=== PATIENT | male | born 1990 | race Caucasian/White ===

== ENCOUNTER 2017-11-26 10:45 | Emergency (ER) | payer BC, OTHER | END 2017-11-26 11:30 | disposition home or self-care (01) | LOC: E/R 10:45 | DX: R55 Syncope and collapse (principal); F12.90 Cannabis use, unspecified, uncomplicated; T73.0XXA Starvation, initial encounter; I51.7 Cardiomegaly | CPT/HCPCS: 82962; 93005; 99283-25 ==